=== PATIENT | female | born 1945 ===

== ENCOUNTER 2022-01-19 10:45 | Inpatient (IN) | payer OTHER ==
[~2022-01-19] VITALS: Ht 160 cm; Wt 61.7 kg
[2022-01-20] MEDS ORDERED: COZAAR100 MG PO (09:34)
[2022-01-20] MEDS ORDERED: PROTONIX40 MG PO (09:35)
[2022-01-20] MEDS ORDERED: ZOCOR20 MG PO (09:35)
[2022-01-20] MEDS ORDERED: TOPROL XL25 M1 PO (09:35)
[2022-01-20] MEDS ORDERED: RESTORIL15 MG PO (09:35)
[2022-01-20] MEDS ORDERED: CLONAZEPAM2 M1 PO (09:36)
[2022-01-21] MEDS ORDERED: COLACE100 MG PO (10:16)
[2022-01-21] MEDS ORDERED: MEDROLPACK PO (10:17)
[2022-01-21] MEDS ORDERED: PERCOCET 5-3251 EACH PO (10:17)
== END 2022-01-22 20:18 | disposition home or self-care (01) | DRG 473 ==
LOC: O/R 01-21 05:57 → SURH 01-21 07:00 → SURG 01-21 18:26
PROVIDERS: ADMIT Orthopaedic Surgery Orthopaedic Surgery of the Spine; ATTEND Orthopaedic Surgery Orthopaedic Surgery of the Spine
PROC: 0RB30ZZ Excision of Cervical Vertebral Disc, Open Approach (ICD-10-PCS; 2022-01-21)
PROC: 0PB30ZZ Excision of Cervical Vertebra, Open Approach (ICD-10-PCS; 2022-01-21)
PROC: 07DS0ZZ Extraction of Vertebral Bone Marrow, Open Approach (ICD-10-PCS; 2022-01-21)
PROC: 0RG20A0 Fusion of 2 or more Cervical Vertebral Joints with Interbody Fusion Device, Anterior Approach, Anterior Column, Open Approach (ICD-10-PCS; principal; 2022-01-21 07:00)
PROC: 4A12X4Z Monitoring of Cardiac Electrical Activity, External Approach (ICD-10-PCS; 2022-01-22)
DX: M50.01 Cervical disc disorder with myelopathy, high cervical region (principal); M48.02 Spinal stenosis, cervical region; I10 Essential (primary) hypertension; Z20.822 Contact with and (suspected) exposure to COVID-19